=== PATIENT | male | born 1955 | race American Indian/Alaskan Native ===

== ENCOUNTER 2020-05-08 08:03 | Day surgery (SDC) | payer OTHER ==
[~2020-05-08 08:03] MED LIST: BUPIVACAINE/PF (0.5%) 5 MG/1 ML 30 ML VIAL INFILTRATI ONE; LIDOCAINE (1%) 10 MG/1 ML VIAL 20 ML MDV ONE
[2020-05-08] MEDS ORDERED: LIDOCAINE (1%) 10 MG/1 ML VIAL 20 ML MDV INFILTRATI ONE (09:37)
[2020-05-08] MEDS ORDERED: BUPIVACAINE/PF (0.5%) 5 MG/1 ML 30 ML VIAL INFILTRATI ONE (09:43)
--- NOTE | 2020-05-08 10:33 | XRay Report ---
RIGHT HIP ONE VIEW INDICATION: RIGHT HIP INJECTION. COMPARISON: None. IMPRESSION: 18 seconds of fluoroscopy time was provided by radiology during right hip injection by o rthopedics. One fluoroscopic image of the right hip is presented demonstrating needle placement raphael g the medial wall of the acetabulum. No acute osseous abnormality is detected. Please correlate with the procedural report as needed. Signer Name: Miller Arias Jr, MD Signed: 05/08/2020 10:29 AM Workstation Name: [id number]
[2020-05-08 10:41] VITALS: BP 121/66
--- NOTE | 2020-05-13 09:33 | Procedure Note ---
Date of procedure: 05/08/20 Pre-op diagnosis: Chronic right hip pain Post-op diagnosis: same Procedure: Right femoral and obturator nerve block hip joint Procedure The patient was brought to the OR placed on the or table in the supine position next C-arm fluoroscopy was used to establish landmarks around the hip joint following this the right hip and groin area was prepped and draped in a sterile manner a timeout procedure was done to identify the patient and correct operative site. Using the 21-gauge spinal needle a 0 fluoroscopy the anterior lateral portion of the acetabular rim was identified the spinal needle was placed up against the anterior border and 2% Marcaine was injected in the area of the femoral nerve articular branches. Following this a second spinal needle was then placed along the area corresponding to the Ischium on C-arm this area was anesthetized with lidocaine followed by insertion of the 21-gauge spinal needle and it was advanced just lateral to the teardrop on the inferior rim of the acetabulum ball was palpated as well The 2% Marcaine was injected into this location to anesthetize the obturator nerve the spinal needle was then removed pressure was applied over the puncture wound was followed by placement of 2 Band-Aids. The patient tolerated the procedure he was then taken back to the preop holding area where he was discharged to home Anesthesia: local Surgeon: VICTORIA FENTON Estimated blood loss: minimal Pathology: none Condition: stable Disposition: observation
== END 2020-05-08 08:04 | disposition home or self-care (01) ==
LOC: OR 08:03
PROVIDERS: ATTEND Orthopaedic Surgery
DX: M25.551 Pain in right hip (principal); M16.11 Unilateral primary osteoarthritis, right hip; G89.29 Other chronic pain; E78.00 Pure hypercholesterolemia, unspecified; I10 Essential (primary) hypertension; G47.30 Sleep apnea, unspecified; M79.7 Fibromyalgia; M19.90 Unspecified osteoarthritis, unspecified site; F41.9 Anxiety disorder, unspecified; Z80.8 Family history of malignant neoplasm of other organs or systems; Z79.899 Other long term (current) drug therapy; Z87.891 Personal history of nicotine dependence; Z98.890 Other specified postprocedural states; Z83.3 Family history of diabetes mellitus

== ENCOUNTER 2020-05-15 11:27 | Day surgery (SDC) | payer OTHER ==
[2020-05-15] MEDS ORDERED: LACTATED RINGERS 1,000 ML ONE (12:57)
[2020-05-15] MEDS ORDERED: LACTATED RINGERS 1,000 ML IV SCH (13:00)
[2020-05-15] MEDS ORDERED: HYDROcodone/ACETAMINOPHEN 5-325 MG TAB PO PRN (13:52)
[2020-05-15] MEDS ORDERED: ONDANSETRON 4 MG/2 ML INJ IV PRN (13:52)
--- NOTE | 2020-05-15 13:52 | Anesthesia Day of Surgery ---
Anesthesia Day of Surgery - Day of Surgery Patient Examined: Yes Patient H&P Reviewed: Yes Patient is NPO: Yes
--- NOTE | 2020-05-15 13:52 | Anesthesia Consultation ---
Anesthesia Consult and Med Hx Date of service: 05/15/20 - Airway Anesthetic Teeth Evaluation: Edentulous ROM Head & Neck: Adequate Mental/Hyoid Distance: Adequate Mallampati Class: Class III Intubation Access Assessment: Possibly Difficult - Pulmonary Exam CTA: Yes - Cardiac Exam Cardiac Exam: RRR - Pre-Operative Health Status ASA Pre-Surgery Classification: ASA2 Proposed Anesthetic Plan: MAC - Pulmonary Hx Smoking: Yes (STOPPED AT AGE 19 YRS OLD) Hx Respiratory Symptoms: No Hx Sleep Apnea: Yes (compliant with CPAP) - Cardiovascular System Hx Hypertension: Yes Hx Heart Attack/AMI: No - Central Nervous System CVA: No Hx Back Pain: Yes (WITH RIGHT SIDED PAIN) Hx Psychiatric Problems: Yes (anxiety/depression) - Endocrine Hx Renal Disease: No Hx Liver Disease: No Hx Insulin Dependent Diabetes: No Hx Non-Insulin Dependent Diabetes: No Hx Thyroid Disease: No - Other Systems Hx Obesity: No
[2020-05-15] MEDS ORDERED: MIDAZOLAM 2 MG/2 ML INJ IV NR (14:00)
[2020-05-15] MEDS ORDERED: MIDAZOLAM 2 MG/2 ML INJ ONE (14:18)
[2020-05-15] MEDS ORDERED: KETAMINE/STERILE WATER 50 MG/ML SYRINGE ONE (14:18)
[2020-05-15] MEDS ORDERED: propofoL 200 MG/20 ML VIAL IV ONE ×2 (14:18→15:14)
[2020-05-15] MEDS ORDERED: LIDOCAINE MPF (2%) 20 MG/1 ML VIAL 5 ML ONE (14:18)
[2020-05-15] MEDS ORDERED: LIDOCAINE (1%) 10 MG/1 ML VIAL 20 ML MDV ONE (14:28)
[2020-05-15] MEDS ORDERED: BUPIVACAINE/PF (0.5%) 5 MG/1 ML 30 ML VIAL INFILTRATI ONE ×2 (14:29→15:00)
[2020-05-15] MEDS ORDERED: methylPREDNISolone ACETATE 40 MG/1 ML INJ ONE (14:29)
[2020-05-15] MEDS ORDERED: LIDOCAINE (1%) 10 MG/1 ML VIAL 20 ML MDV INFILTRATI ONE (15:00)
[2020-05-15] MEDS ORDERED: methylPREDNISolone ACETATE 40 MG/1 ML INJ INTRA-ARTI ONE (15:00)
--- NOTE | 2020-05-15 15:23 | Procedure Note ---
Date of procedure: 05/15/20 Pre-op diagnosis: Right hip pain Post-op diagnosis: same Procedure: Radiofrequency ablation [right] femoral and obturator nerves Procedure The patient was brought to the OR placed in the OR table in supine position following induction with MAC anesthesia the patient's [hip] was then prepped and draped in the usual sterile manner. A timeout procedure was done to identify the patient and the correct operative site. Using C-arm fluoroscopy the area overlying the acetabular rim superiorly was localized, care was taken to avoid the neurovascular structures, next the thermoprobe was placed into the correct position along the acetabular superior rim, next a second probe was then inserted just medial to the tear drop sign near the obturator canal, again care was taken to avoid the neurovascular structures once These probes were in the corret position the nerves was checked to make sure that we were not near the motor nerves following this the radiofrequency was then began and continued for 2-1/2 minutes in each location After ablating the nerves I injected Marcaine and Kenalog mixture into the portals followed by removal. Band-Aids were applied to the puncture sites the patient was then awaken and was taken to postanesthesia recovery Anesthesia: MAC Surgeon: VICTORIA FENTON Estimated blood loss: minimal Pathology: none Condition: stable Disposition: PACU
[2020-05-15] MEDS: fentaNYL 100 MCG/2 ML INJ IV PRN ×4 (15:44→16:47)
--- NOTE | 2020-05-15 16:09 | XRay Report ---
XR RIGHT HIP INDICATION / CLINICAL INFORMATION: Right hip pain. Intraoperative COMPARISON: None available. FINDINGS: Multiple intraoperative images were obtained with metallic instruments overlying the hip. No complica tion of surgery is seen. Fluoroscopy time: 37 seconds. Fluoroscopic images: 3. Signer Name: Cachorro Solano MD Signed: 05/15/2020 4:05 PM Workstation Name: [id number]
[2020-05-15 17:05] VITALS: BP 147/67
--- NOTE | 2020-05-15 19:25 | Post Anesthesia Evaluation ---
- Post Anesthesia Evaluation Patient Participated: Yes Airway Patent: Yes Stable Respiratory Function: Yes Nausea/Vomiting: No Temp > 96.8F: Yes Pain Manageable: Yes Adequeate Hydration: Yes Anesthesia Complications: No
== END 2020-05-15 17:15 | disposition home or self-care (01) ==
LOC: OR 11:27
PROVIDERS: ATTEND Orthopaedic Surgery
DX: M25.551 Pain in right hip (principal); E78.00 Pure hypercholesterolemia, unspecified; I10 Essential (primary) hypertension; G47.30 Sleep apnea, unspecified; M79.7 Fibromyalgia; M19.90 Unspecified osteoarthritis, unspecified site; F32.9 Major depressive disorder, single episode, unspecified; F41.9 Anxiety disorder, unspecified; Z80.8 Family history of malignant neoplasm of other organs or systems; Z79.899 Other long term (current) drug therapy; Z87.891 Personal history of nicotine dependence; Z98.890 Other specified postprocedural states
CPT/HCPCS: 36415; 64640; 73501; 84132; A4649; J1030; J2250; J2704; J3010; J3490; J7120